=== PATIENT | female | born 1980 | race Two or more races ===

== ENCOUNTER 2018-04-22 07:09 | Emergency (ER) | payer MEDICAID ==
[~2018-04-22] VITALS: Ht 162.6 cm; Wt 77.8 kg
[2018-04-22 07:12] VITALS: BP 115/83
== END 2018-04-22 09:02 | disposition home or self-care (01) ==
LOC: ED 08:56
DX: J00 Acute nasopharyngitis [common cold] (principal); B97.89 Other viral agents as the cause of diseases classified elsewhere
CPT/HCPCS: 87081; 87880; 99284